=== PATIENT | female | born 1965 | race Two or more races ===

== ENCOUNTER 2022-01-28 16:12 | Inpatient (IN) | payer OTHER ==
[~2022-01-28] VITALS: Ht 160 cm; Wt 51.3 kg
--- NOTE | 2022-01-28 17:04 | NUR ---
BIBS FOR SYNCOPAL EPISODES YESTERDAY 1899. DENIES KO. C/O N/V, STOMACH ACHE, LOOSE STOOLS SINCE YESTERDAY, CONNECTED TO MONITOR, AWAITING MD LOUISE
--- NOTE | 2022-01-28 17:14 | NUR ---
SALINE LOCK ESTABLISHED, BLOOD DRAWN AND SENT TO LAB
--- NOTE | 2022-01-28 17:19 | NUR ---
URINE COLLECTED AND SENT TO LAB
[2022-01-28 17:30] LABS: BASOPHILS % (AUTO) 0.4 % (0.0-2.0); EOSINOPHILS % (AUTO) 0.1 % (0.0-6.0); HEMATOCRIT 44 % (33-45); HEMOGLOBIN 15.2 g/dL (11.5-14.8); LYMPHOCYTES # (AUTO) 0.7 K/uL (0.8-4.8); LYMPHOCYTES % (AUTO) 10.7 % (20.0-44.0); MEAN CORPUSCULAR HGB CONC 34 g/dl (31.0-36.0); MEAN CORPUSCULAR VOLUME 92 fL (82-100); MONOCYTES # (AUTO) 0.6 K/uL (0.1-1.30); MONOCYTES % (AUTO) 8.2 % (2.0-12.0); NEUTROPHILS # (AUTO) 5.5 K/uL (1.8-8.9); NEUTROPHILS % (AUTO) 80.6 % (43.0-81.0); PLATELET COUNT (AUTO) 269 K/uL (150-450); RED BLOOD CELL COUNT(AUTO) 4.85 MIL/uL (4.0-5.2); WHITE BLOOD COUNT (AUTO) 6.9 K/uL (4.3-11.0)
--- NOTE | 2022-01-28 17:37 | NUR ---
MOVE SHEET SUBMITTED AND CALLED FOR TELE BED.
--- NOTE | 2022-01-28 17:38 | NUR ---
COVID TEST COLLECTED AND SENT
[2022-01-28 17:48] LABS: ALANINE AMINOTRANSFERASE 290 U/L (12-78); ALBUMIN 4.1 g/dL (3.4-5.0); ALKALINE PHOSPHATASE 128 U/L (46-116); ASPARTATE AMINOTRANSFERASE 359 U/L (15-37); BILIRUBIN,DIRECT 0.6 mg/dL (0.0-0.2); BILIRUBIN,TOTAL 1.6 mg/dL (0.2-1.0); CALCIUM, SERUM 8.9 mg/dL (8.5-10.1); CARBON DIOXIDE 24 mmol/L (21-32); CHLORIDE 102 mmol/L (98-107); CREATININE 0.9 mg/dL (0.6-1.3); GLUCOSE 116 mg/dL (74-106); POTASSIUM 3.1 mmol/L (3.5-5.1); SODIUM SERUM 135 mmol/L (136-145); TOTAL PROTEIN, SERUM 8.1 g/dL (6.4-8.2); UREA NITROGEN, BLOOD 14 mg/dL (7-18)
[2022-01-28 17:50] LABS: BILIRUBIN,URINE NEGATIVE (NEGATIVE); COLOR,URINE YELLOW (YELLOW); LEUKOCYTE ESTERASE ,URINE TRACE (NEGATIVE); NITRITE, URINE NEGATIVE (NEGATIVE); PROTEIN,URINE NEGATIVE (NEGATIVE); UGLUCOSE NEGATIVE (NEGATIVE)
[2022-01-28 17:54] LABS: BACTERIA,URINE RARE /HPF (None Seen); RBC,URINE 0-2 /HPF (0-2)
[2022-01-28 17:55] LABS: MUCUS,URINE Few /LPF (None Seen)
[2022-01-28] MEDS ORDERED: LEVO50TA8 PO (17:56)
[2022-01-28] MEDS ORDERED: CETI10TA14 PO (17:56)
[2022-01-28] MEDS ORDERED: CT SWABBABLE VALVE TRANS SET 1 EA INFUS.SET MC ONE (18:48)
[2022-01-28] MEDS ORDERED: IOHEXOL-300 100 ML VIAL IV ONE (18:48)
[2022-01-28] MEDS ORDERED: IV NS 0.9% 250 ML IV ONE (18:48)
[2022-01-28] MEDS ORDERED: ONDANSETRON HCL/PF 4 MG/2 ML VIAL ONE (19:52)
[2022-01-28] MEDS ORDERED: MORPHINE SULFATE INJ 4 MG/ML DISP.SYRIN ONE ×2 (19:52→20:29)
[2022-01-28] MEDS ORDERED: ONDANSETRON HCL/PF 4 MG/2 ML VIAL IV ONE (20:00)
--- NOTE | 2022-01-28 20:01 | NUR ---
RECIEVED [facility] 311-1
[2022-01-28] MEDS: MORPHINE SULFATE INJ 2 MG/ML DISP.SYRIN IV ONE ×2 (20:42→21:06)
--- NOTE | 2022-01-28 21:25 | NUR ---
REPORT GIVEN TO JUANA
[2022-01-28] MEDS ORDERED: ACETAMINOPHEN 325 MG TABLET PO PRN (21:30)
[2022-01-28] MEDS ORDERED: MAGNESIUM HYDROXIDE 30 ML UDC PO PRN (21:30)
[2022-01-28] MEDS ORDERED: Z GUARD REMEDY 4 OZ OINT TP PRN (21:30)
[2022-01-28] MEDS ORDERED: ONDANSETRON HCL/PF 4 MG/2 ML VIAL IVP PRN (21:30)
[2022-01-28] MEDS ORDERED: MAG HYDROX/AL HYDROX/SIMETH 30 ML UDC PO PRN (21:30)
[2022-01-28] MEDS ORDERED: IV NS 0.9% 500 ML BAG IV ONE (21:30)
[2022-01-28 21:50] VITALS: BP 114/74
--- NOTE | 2022-01-28 21:57 | NUR ---
PATIENT BEING TRANSFERRED TO 3RD FLOOR VIA ACLS
--- NOTE | 2022-01-28 21:58 | NUR ---
CASH PERSON RECEIVING/OPENING NOTES PATIENT BROUGHT UP AT THIS TIME VIA [employer]. A/OX4, ROMANSH SPEAKING. DELIVERY SPECIALIST OBTAINED FOR THE ADMISSION PROCESS/QUESTIONS. NO S/S OF APPARENT DISTRESS. PAIN TOLERABLE AT THIS TIME BUT PATIENT WAS VERY THIRSTY-- NEEDS ATTENDED. Zeeshan FAITH 18G NOTED-- STARTED ON IV NS @ 75CC/HR. TELE MONITOR READING NSR 70. PATIENT WISHES TO BE FULL CODE AT THIS TIME. PATIENT DENIES OBTAINING ANY FALLS, PER PATIENT SHE PASSED OUT ON THE OTHER PERSONS SHOULDER AT [place] WHILE SITTED. SKIN INTACT. DENIES SMOKING AND ALCOHOL ABUSE. PATIENT UP TO DATE WITH HER IMMUNIZATIONS. NEW ID BAND ON PATIENT. BELONGINGS CHECKED AND VERIFIED WITH SMOKING TOBACCO CUTTER OPERATOR. DENIES BURNING SENSATION WHEN SHE URINATES BUT REPORTS FREQUENCY. WILL CONTINUE WITH PATIENT'S PLAN OF CARE AND FOLLOW THROUGH DOCTOR'S ORDERS. V/S FOLLOWS: BP- 114/76, HR-66, T-98.2, SATURATION 98-100% ON ROOM AIR. WT- 113.3 LBS.
--- NOTE | 2022-01-28 21:58 | NUR ---
FULLER BRUSH MAN NOTE PATIENT INSERTED HARRELL CATH ORDERED BUT REFUSED TO LEAVE IT ON. PETROLEUM ENGINEER DUANE TITUS NP NOTIFIED AND ACKNOWLEDGED. NO NEW ORDERS. WILL CONTINUE TO MONITOR.
[2022-01-28] MEDS: IV NS 0.9% 1,000 ML IV PRN (22:56)
[2022-01-28] MEDS: CEFTRIAXONE 1 G in IV D5W 50 ML IV SCH (22:56)
[2022-01-28] MEDS ORDERED: CEFTRIAXONE 1 G VIAL ONE (22:56)
[2022-01-28] MEDS: ENOXAPARIN SODIUM 40 MG/0.4 ML DISP.SYRIN SQ SCH (22:59)
[2022-01-29] VITALS: BP 147/93
[2022-01-29 00:27] VITALS: BP 147/93
--- NOTE | 2022-01-29 04:55 | NUR ---
PANEL SAW OPERATOR NOTE- ORTHOSTATIC LYING DOWN- 106/58 HR-71 SITTING DOWN- 110/64 HR-67 STANDING- 137/107 HR-71 - PATIENT REPORTED BEING DIZZY 3 MINUTES INTO STANDING ORTHOSTATIC AND WAS UNABLE TO TOLERATE.
--- NOTE | 2022-01-29 06:55 | NUR ---
BANANA ROOM CUTTER CLOSING NOTE PATIENT IN BED. A/OX4. NO S/S OF APPARENT DISTRESS. DENIES PAIN AT THIS TIME. IV L. AC 18G RUNNING NS @ 75CC/HR. ALL NEEDS ATTENDED. SCHEDULED MEDICATIONS ADMINISTERED. SAFETY IN PLACE-- PATIENT STILL UNSTEADY UPON ASSESSMENT. WILL ENDORSE TO MORNING SHIFT RN FOR CONTINUITY OF CARE.
[2022-01-29] MEDS: LEVOTHYROXINE SODIUM 50 MCG TABLET PO SCH (07:15)
[2022-01-29] MEDS: PANTOPRAZOLE 40 MG TABLET.DR PO SCH (07:15)
--- NOTE | 2022-01-29 07:19 | NUR ---
PLATFORM ARCHITECT OPENING NOTES PATIENT RECEIVED AWAKE IN BED IN NO ACUTE SIGNS OF DISTRESS. A/OX4. ABLE TO MAKE NEEDS KNOWN, ARABIC SPEAKING, DENIES PAIN OR DISCOMFORTS AT THIS TIME. ON ROOM AIR. TOLERATING WELL WITH NO SOB NOTED. IV ACCESS ON LAC #20G INTACT AND PATENT, IVF OF NS @ 75ML/HR INFUSING WELL. TELE-MONITOR SHOWS NSR WITH BBB'S, HR 65, NO C/O CARDIAC DISTRESS VOICED. SAFETY MEASURES IN PLACE: BED AT LOWEST LOCKED POSITION, SIDE-RAILS UP X2, CALL FOX WITHIN REACH. WILL CONTINUE TO MONITOR PATIENT.
[2022-01-29 07:27] LABS: CALCIUM, SERUM 8.1 mg/dL (8.5-10.1); CREATININE 0.7 mg/dL (0.6-1.3); MAGNESIUM 2.2 mg/dL (1.8-2.4); PHOSPHORUS 4.2 mg/dL (2.5-4.9); POTASSIUM 3.4 mmol/L (3.5-5.1)
[2022-01-29 08:00] VITALS: BP 107/71
[2022-01-29 09:38] LABS: BASOPHILS % (AUTO) 0.3 % (0.0-2.0); EOSINOPHILS % (AUTO) 0.5 % (0.0-6.0); HEMATOCRIT 40 % (33-45); HEMOGLOBIN 13.5 g/dL (11.5-14.8); LYMPHOCYTES # (AUTO) 1.1 K/uL (0.8-4.8); LYMPHOCYTES % (AUTO) 35.2 % (20.0-44.0); MEAN CORPUSCULAR HGB CONC 34 g/dl (31.0-36.0); MEAN CORPUSCULAR VOLUME 93 fL (82-100); MONOCYTES # (AUTO) 0.4 K/uL (0.1-1.30); MONOCYTES % (AUTO) 12.6 % (2.0-12.0); NEUTROPHILS # (AUTO) 1.7 K/uL (1.8-8.9); NEUTROPHILS % (AUTO) 51.4 % (43.0-81.0); PLATELET COUNT (AUTO) 198 K/uL (150-450); RED BLOOD CELL COUNT(AUTO) 4.34 MIL/uL (4.0-5.2); WHITE BLOOD COUNT (AUTO) 3.2 K/uL (4.3-11.0)
[2022-01-29 10:23] LABS: THYROID STIMULATING HORMONE 2.333 uIU/mL (0.358-3.74)
[2022-01-29] MEDS ORDERED: POTASSIUM CHLORIDE 20 MEQ TAB.PRT.SR PO SCH (11:00)
[2022-01-29 12:00] VITALS: BP 108/51
[2022-01-29] MEDS: IV NS 0.9% 1,000 ML IV PRN (12:28)
[2022-01-29 16:00] VITALS: BP 119/68
--- NOTE | 2022-01-29 18:40 | NUR ---
LAMINATING MACHINE OPERATOR CLOSING NOTES PATIENT RESTING COMFORTABLLY AWAKE IN BED IN NO ACUTE SIGNS OF DISTRESS. A/OX4. DENIES PAIN. NIGERIAN SPEAKING. ON ROOM AIR. TOLERATING WELL WITH NO SOB NOTED. IV ACCESS ON LAC #20G INTACT IVF OF NS @ 75ML/HR INFUSING WELL. TELE-MONITOR SHOWS NSR WITH BBB'S, HR 66 NO C/O CARDIAC DISTRESS VOICED. SAFETY MEASURES IN PLACE: BED AT LOWEST LOCKED POSITION, SIDE-RAILS UP X2, CALL FOX WITHIN REACH. WILL ENDORSE REPORT TO SIDE FRAMER FOR CONTINUITY OF CARE.
--- NOTE | 2022-01-29 19:39 | NUR ---
PRESCHOOL DISABILITY TEACHER OPENING NOTES: RECEIVED PATIENT AWAKE IN BED, A/OX4 SWEDISH SPEAKING, BED IN LOW POSITON, CALL LIGHTS WITHIN REACH, NO COMPLAIN OF PAIN AND DISCOMFORT AT THIS TIME, ON TELE MONITORING SR-67, ON ROOM AIR NO SOB WAS OBSERVED, PATIENT IS AMBULATORY WITH ASSIST, DUE TO DIZZY SPELLS, WITH IV LINE AT LAC#20 WITH ONGOING IV LINE OF 0.9NSS@75ML PER HOUR INFUSING WELL, PATIENT KEPT CLEAN AND DRY ALL NEEDS MET, WILL CONTINUE TO MONITOR.
[2022-01-29 20:00] VITALS: BP 106/61
[2022-01-29] MEDS: CEFTRIAXONE 1 G in IV D5W 50 ML IV SCH (21:33)
[2022-01-29] MEDS: ENOXAPARIN SODIUM 40 MG/0.4 ML DISP.SYRIN SQ SCH (21:35)
[2022-01-30] VITALS: BP 122/56
[2022-01-30 04:00] VITALS: BP 129/72
[2022-01-30] MEDS: IV NS 0.9% 1,000 ML IV PRN (05:12)
[2022-01-30 06:27] LABS: BASOPHILS % (AUTO) 0.4 % (0.0-2.0); EOSINOPHILS % (AUTO) 1.5 % (0.0-6.0); HEMATOCRIT 39 % (33-45); LYMPHOCYTES # (AUTO) 1.9 K/uL (0.8-4.8); LYMPHOCYTES % (AUTO) 48.6 % (20.0-44.0); MEAN CORPUSCULAR HGB CONC 34 g/dl (31.0-36.0); MEAN CORPUSCULAR VOLUME 93 fL (82-100); MONOCYTES # (AUTO) 0.4 K/uL (0.1-1.30); MONOCYTES % (AUTO) 10.9 % (2.0-12.0); NEUTROPHILS # (AUTO) 1.5 K/uL (1.8-8.9); NEUTROPHILS % (AUTO) 38.6 % (43.0-81.0); PLATELET COUNT (AUTO) 232 K/uL (150-450); RED BLOOD CELL COUNT(AUTO) 4.17 MIL/uL (4.0-5.2); WHITE BLOOD COUNT (AUTO) 3.9 K/uL (4.3-11.0)
[2022-01-30 07:07] LABS: IMMUNOGLOBULIN A, SERUM 151 mg/dL (87-352); IMMUNOGLOBULIN G, SERUM 905 mg/dL (586-1602); IMMUNOGLOBULIN M, SERUM 61 mg/dL (26-217)
--- NOTE | 2022-01-30 07:17 | NUR ---
FINANCIAL RECRUITER CLOSING NOTES: PATIENT SLEEP IN BED COMFORTABLY, AROUSABLE TO VERBAL STIMULI, BED IN LOW POSITION, CALL LIGHTS WITHIN REACH, NO COMPLAIN OF PAIN AND DISCOMFORT AT THIS TIME, PATIENT ON ROOM AIR SATURATING WELL WITH ONGOING IV INFUSION AT LAC#20 WITH NSS@75ML PER HOUR INFUSING WELL, ON TELE [id number], PATIENT IS AMBULATORY WITH SUPERVISION, A/O ABLE TO MAKE NEEDS KNOWN, PATIENT KEPT CLEAN AND DRY ALL NEEDS MET ENDORSE TO INCOMING SHIFT.
[2022-01-30 07:44] LABS: CALCIUM, SERUM 8.3 mg/dL (8.5-10.1); CREATININE 0.7 mg/dL (0.6-1.3); PHOSPHORUS 3.8 mg/dL (2.5-4.9); POTASSIUM 3.7 mmol/L (3.5-5.1)
[2022-01-30 08:00] VITALS: BP 148/71
[2022-01-30] MEDS: PANTOPRAZOLE 40 MG TABLET.DR PO SCH (08:11)
[2022-01-30] MEDS: LEVOTHYROXINE SODIUM 50 MCG TABLET PO SCH (08:11)
--- NOTE | 2022-01-30 08:45 | NUR ---
RN NOTES PATIENT ABLE TO TAKE AM MEDS; NO COMPLAINT OF PAIN NOR ACUTE DISTRESS. URUGUAYAN-SPEAKING MAINLY AND REQUESTS TO GO HOME TODAY. WILL INFORM MD APPLICABLE.
--- NOTE | 2022-01-30 10:58 | NUR ---
RN NOTES SPOKE W/ ABRAHAM ([phone]), DTR, AND INFORMED ABOUT PATIENT'S CONDITION/PROGRESS. WILL PROVIDE UPDATE ONCE MD SEES PATIENT.
[2022-01-30 12:00] VITALS: BP 128/69
[2022-01-30] MEDS ORDERED: CEPH500C2 PO (12:02)
--- NOTE | 2022-01-30 12:14 | NUR ---
RN NOTES DR. GUARDADO AT BEDSIDE TO SEE THE PATIENT. ORTHOSTATICS TAKEN, DR. GUARDADO AWARE. NO ORTHO HYPOTENSION NOTED.
--- NOTE | 2022-01-30 13:26 | NUR ---
RN NOTES PATIENT SEEN BY DR. GUARDADO TODAY W/ ORDER FOR DISCHARGE TO HOME. DISCHARGE INSTRUCTION AND EDUCATION PROVIDED TO PATIENT, VERBALIZED UNDERSTANDING, PUERTO RICAN-SPEAKING STAFF AND PATIENT'S SON AT BEDSIDE TO TRANSLATE. DISCHARGE FORM AND BELONGINGS LIST FORM SIGNED BY PATIENT AND ALL BELONGINGS ACCOUNTED FOR. NAME ARMBAND AND IV LINE REMOVED, NO BLEEDING NOTED. NO SKIN ISSUES OBSERVED. PATIENT IS AMBULATORY W/ STEADY GAIT AND IS ACCOMPANIED BY SON TO THE LOBBY; PICKED UP VIA PRIVATE CAR. CHARGE NURSE AND MD AWARE OF DISCHARGE.
[2022-01-30 14:07] LABS: *ANA ANTI-CENTROMERE B AB <0.2 AI (0.0-0.9); *ANA ANTI-DNA(DS) AB, QN <1 IU/mL (0-9); *ANA ANTI-JO-1 <0.2 AI (0.0-0.9); *ANA ANTICHROMATIN ANTIBODY <0.2 AI (0.0-0.9); *ANA RNP ANTIBODIES <0.2 AI (0.0-0.9); *ANA SJOGREN'S ANTI-SS-A <0.2 AI (0.0-0.9); *ANA SJOGREN'S ANTI-SS-B <0.2 AI (0.0-0.9); *ANAANTI-SCLERODERMA-70 AB <0.2 AI (0.0-0.9); *ANASMITH AB <0.2 AI (0.0-0.9)
== END 2022-01-30 13:30 | disposition home or self-care (01) | DRG 463 ==
LOC: ER 16:18 → TELE 20:33
PROVIDERS: ADMIT Registered Nurse; ATTEND Nurse Practitioner Acute Care
DX: N39.0 Urinary tract infection, site not specified (principal); B96.89 Other specified bacterial agents as the cause of diseases classified elsewhere; I95.1 Orthostatic hypotension; E80.6 Other disorders of bilirubin metabolism; E86.0 Dehydration; E86.1 Hypovolemia; E87.6 Hypokalemia; R74.01 Elevation of levels of liver transaminase levels; R19.7 Diarrhea, unspecified; Z90.49 Acquired absence of other specified parts of digestive tract; Z20.822 Contact with and (suspected) exposure to COVID-19
CPT/HCPCS: 36415; 71045-TC; 76705-TC; 80048-TC; 80061-TC; 80074; 80076-TC; 81001; 82784; 83516; 83735-TC; 84100-TC; 84443-TC; 84484-TC; 85025-TC; 86225; 86235; 87081-TC; 87086-TC; 93307-TC; 93880-TC; 97116-TC; 97530-TC; C9803; G0378; J0696; J1650; J2270; J2405; J7030; J7050; J7060; Q9967